=== PATIENT | female | born 1955 | race Caucasian/White ===

== ENCOUNTER 2019-04-23 07:59 | Emergency (ER) | payer MEDICARE, MEDICAID ==
[~2019-04-23] VITALS: Ht 170.2 cm; Wt 46.4 kg
[~2019-04-23 07:59] MED LIST: ALEVE220 MG PO; APAP325 MG PO; CARAFATE1 G PO; INCRUSE ELLI62.5 MCG INH; K-TAB10 MEQ PO; MIRALAX17 GM PO; NEPHRO-VITE RX1 TAB PO; PHENERGAN25 M1 PO; PROPRANOLOL HCL20 MG PO; PROTONIX40 MG PO
[2019-04-23 08:00] VITALS: Ht 170.2 cm; Wt 46.4 kg
[2019-04-23 08:30] LABS: APPEARANCE HAZY (CLEAR); COLOR YELLOW (YELLOW); GLUCOSE NEGATIVE (NEGATIVE); KETONE SMALL mg/dL (NEGATIVE); NITRITE POSITIVE (NEGATIVE); PROTEIN TRACE mg/dL (NEGATIVE); UROBILINOGEN NORMAL (NORMAL)
[2019-04-23 08:31] LABS: BILIRUBIN NEGATIVE (NEGATIVE)
[2019-04-23 08:32] LABS: WHITE CELLS - URINE 0-5 /hpf (NEGATIVE)
[2019-04-23 08:33] LABS: BACTERIA MODERATE /hpf (NEGATIVE); EPITHELIAL CELLS NSEEN /hpf (0-5); RED CELLS - URINE 0-5 /hpf (0-5)
[2019-04-23 08:42] LABS: HEMATOCRIT 43.8 % (36.0-48.0); HEMOGLOBIN 13.8 g/dL (12-16); MCH 26.6 pg (26.0-34.0); MCHC 31.5 g/dL (31.0-37.0); MCV 84.6 fL (80.0-100.0); MEAN PLATELET VOLUME 11.2 fL (7.4-10.4); PLATELET COUNT 282 10x3/uL (130-400); RBC 5.18 10x6/uL (4.00-5.40); RDW 16.1 % (11.5-14.5); WBC 36.4 10x3/uL (4.8-10.8)
[2019-04-23 08:52] LABS: CALC OSMOLALITY 281 mosm/kg (275-300); CARBON DIOXIDE 26.4 mmol/L (21.0-32.0); CHLORIDE - SERUM 104 mmol/L (98-107); CREATININE - SERUM 0.9 mg/dL (0.6-1.3); POTASSIUM - SERUM 3.6 mmol/L (3.5-5.1); SODIUM 140 mmol/L (136-145); UREA NITROGEN 10 mg/dL (7-18); eGFR NON AFRICAN AMERICAN 67 mL/min (90-120)
[2019-04-23 08:59] LABS: GLUCOSE 162 mg/dL (74-106)
[2019-04-23 09:02] LABS: ALBUMIN 2.8 g/dL (3.4-5.0); ALKALINE PHOSPHATASE 123 U/L (46-116); ALT (SGPT) 16 U/L (10-68); AMYLASE - SERUM 48 U/L (25-115); BILIRUBIN - TOTAL 0.53 mg/dL (0.2-1.3); LIPASE 107 U/L (73-393); PROTEIN - SERUM 6.8 g/dL (6.4-8.2); TROPONIN-I < 0.017 ng/mL (0.000-0.060)
[2019-04-23 09:08] LABS: EOSINOPHILS 1 % (0-7); LYMPHOCYTES 2 % (15-50); MONOCYTES 6 % (2-11); NEUTROPHILS 87 % (40-80); PLATELET ESTIMATE NORMAL
[2019-04-23 12:11] VITALS: BP 138/89
== END 2019-04-23 12:12 | disposition short-term general hospital (02) ==
LOC: D.ER 07:59
PROVIDERS: Family Medicine
DX: N13.2 Hydronephrosis with renal and ureteral calculous obstruction (principal); D72.829 Elevated white blood cell count, unspecified; I80.8 Phlebitis and thrombophlebitis of other sites; R00.0 Tachycardia, unspecified